=== PATIENT | male | born 1955 | race Hispanic/Latino ===

== ENCOUNTER 2021-04-24 06:42 | Observation (INO) | payer OTHER ==
[~2021-04-24] VITALS: Ht 167.6 cm; Wt 79.5 kg
[2021-04-24] MEDS ORDERED: DEXAMETHASONE SOD PHOS 10 MG/1 ML VIAL ONE (07:28)
[2021-04-24] MEDS ORDERED: CELECOXIB 200 MG CAP ONE (07:28)
[2021-04-24] MEDS ORDERED: GABAPENTIN 300 MG CAP ONE (07:29)
[2021-04-24] MEDS ORDERED: ROPIVACAINE 246.25 MG, EPINEPHRINE HCL 1:1000 1ML 0.5 MG, CLONIDINE HCL 0.08 MG, KETORO... INJ ONE ×5 (08:00)
[2021-04-24] MEDS ORDERED: Vancomycin IV 1,000 MG ONE (09:01)
[2021-04-24] MEDS ORDERED: SODIUM CHLORIDE 0.9% 500ML 500 ML ONE (09:02)
[2021-04-24] MEDS ORDERED: TRANEXAMIC ACID 1,000 MG/10 ML ML ONE (09:02)
[2021-04-24] MEDS ORDERED: ZOLPIDEM TARTRATE 5 MG TAB PO PRN (10:45)
[2021-04-24] MEDS ORDERED: ONDANSETRON HCL INJ 2MG/ML 2ML 2 MG/ML VIAL IV PRN (10:45)
[2021-04-24] MEDS ORDERED: HYDROCODONE/APAP 5MG-325MG TAB PO PRN (10:45)
[2021-04-24] MEDS ORDERED: HYDROCODONE/APAP 7.5MG-325MG 1 EA TAB PO PRN (10:45)
[2021-04-24] MEDS ORDERED: DOCUSATE SODIUM 100 MG CAP PO PRN (10:45)
[2021-04-24] MEDS ORDERED: ACETAMINOPHEN 650 MG SUPP PR PRN (10:45)
[2021-04-24] MEDS ORDERED: SODIUM CHLORIDE 0.9% 1000ML 1,000 ML IV SCH (10:45)
[2021-04-24] MEDS ORDERED: DIPHENHYDRAMINE HCL INJ 50 MG/ML VIAL IV PRN (10:45)
[2021-04-24 12:08] VITALS: BP 131/77
[2021-04-24] MEDS ORDERED: LIDOCAINE HCL 2% LOCAL INJ 5 ML SDV VIAL INJ ONE (12:20)
[2021-04-24] MEDS ORDERED: SEVOFLURANE INHAL SOLN 250 ML PEN BTL ONE (12:20)
[2021-04-24] MEDS ORDERED: PROPOFOL IV EMULSION 10 MG/ML 20 ML VIAL ONE (12:20)
[2021-04-24] MEDS ORDERED: POVIDONE IODINE 0.05% 0.05 % ML PO ONE (12:20)
[2021-04-24] MEDS ORDERED: EPHEDRINE SULFATE INJ 50 MG/ML VIAL ONE (12:20)
[2021-04-24] MEDS ORDERED: SUCCINYLCHOLINE CHLORIDE 20 MG/ML 10ML VIAL ONE (12:20)
[2021-04-24] MEDS ORDERED: ROCURONIUM BROMIDE 10 MG/ML 5ML VIAL IV ONE (12:20)
[2021-04-24] MEDS ORDERED: ROPIVACAINE 0.5% 5 MG/ML 30 ML SDV ONE (13:31)
[2021-04-24 13:43] VITALS: BP 132/90
[2021-04-24] MEDS: Cefazolin 1 GM in SODIUM CHLORIDE 0.9% 50ML 50 ML IV SCH ×2 (15:18→23:46)
[2021-04-24] MEDS ORDERED: SODIUM CHLORIDE 0.9% 250ML 250 ML ONE (15:26)
[2021-04-24] MEDS: CELECOXIB 200 MG CAP PO SCH (16:37)
[2021-04-24 16:38] VITALS: BP 114/72
[2021-04-24] MEDS ORDERED: ASPIRIN 325 MG TAB PO SCH (17:00)
[2021-04-24 19:58] VITALS: BP 96/66
[2021-04-24 20:00] VITALS: BP 96/66
[2021-04-24 23:53] VITALS: BP 96/57
[2021-04-25 04:00] VITALS: BP 118/67
[2021-04-25 05:35] LABS: HEMATOCRIT 35.3 % (38.2-49.6); HEMOGLOBIN 11.9 g/dL (14.0-18.0)
[2021-04-25 07:39] VITALS: BP 100/63
[2021-04-25 07:40] VITALS: BP 100/63
[2021-04-25] MEDS: Cefazolin 1 GM in SODIUM CHLORIDE 0.9% 50ML 50 ML IV SCH (08:44)
[2021-04-25] MEDS: CELECOXIB 200 MG CAP PO SCH ×2 (08:44→16:52)
[2021-04-25] MEDS ORDERED: ONDANSETRON HCL 4 MG ORAL DISINTEGRATING TAB PO PRN (08:45)
[2021-04-25] MEDS ORDERED: ACETAMINOPHEN 1000 MG/100 ML IV PRN (10:45)
[2021-04-25 11:41] VITALS: BP 112/66
[2021-04-25 16:03] VITALS: BP 121/64
== END 2021-04-25 18:17 | disposition home or self-care (01) ==
LOC: OR 06:42 → PACU V 12:50 → MED/SURG 13:30
PROVIDERS: ADMIT Specialist; ATTEND Specialist
DX: M17.0 Bilateral primary osteoarthritis of knee (principal); Z20.822 Contact with and (suspected) exposure to COVID-19; Z01.818 Encounter for other preprocedural examination
CPT/HCPCS: 27447; 36415 ×2; 71046; 73560; 82948; 85014; 85018; 86850; 86900; 86920; 97116 ×2; 97161; 97530; C1713; G0378 ×2; J0171; J0690 ×2; J1100; J1885; J2795; J3370; J7040; J7050; U0002; J0330; J2001; J2405